=== PATIENT | female | born 1995 | race Caucasian/White ===

== ENCOUNTER 2019-06-23 18:37 | Emergency (ER) | payer OTHER ==
--- NOTE | 2019-06-23 19:16 | EKG REPORT ---
SEVERITY:- ABNORMAL ECG - SINUS RHYTHM BORDERLINE Q WAVES IN INFERIOR LEADS INFERIOR Q WAVES, PROBABLY NORMAL VARIATION BORDERLINE T ABNORMALITIES, ANTERIOR LEADS : Confirmed by: Sangeeta Jiang MD 23-Jun-2019 19:14:42
[2019-06-23] MEDS ORDERED: ASPIRIN 81 MG TABLET, CHEWABLE PO ONE (19:58)
--- NOTE | 2019-06-23 20:01 | ER Document Report ---
ED Medical Screen (RME) - General Chief Complaint: Chest Pain Stated Complaint: DIZZY, NAUSEA,CHEST PAIN Time Seen by Provider: 06/23/19 19:51 Notes: Patient is a 23-year-old female who presents to the emergency department with a chief complaint of chest pain. Around 1700 today she was drinking glass of water and felt a sharp pain in the left side of her chest. Patient has history of a pulmonary emboli before. She states that it feels similar to her pulmonary emboli, but she also had costochondritis before. Patient vapes. Exam: S1, S2. Sinus rhythm. Breath sounds throughout. I have greeted and performed a rapid initial assessment of this patient. A comprehensive ED assessment and evaluation of the patient, analysis of test results and completion of medical decision making process will be conducted by an additional ED providers. TRAVEL OUTSIDE OF THE [place] IN LAST 30 DAYS: No - Related Data Allergies/Adverse Reactions: No Known Allergies Allergy (Unverified 06/23/19 19:55) Past Medical History - Social History Frequency of alcohol use: None Physical Exam - Vital signs Vitals: Temp Pulse Resp BP Pulse Ox 98.4 F 78 18 108/69 100 06/23/19 18:52 06/23/19 18:52 06/23/19 18:52 06/23/19 18:52 06/23/19 18:52 Course - Vital Signs Vital signs: Temp Pulse Resp BP Pulse Ox 98.4 F 78 18 108/69 100 06/23/19 19:51 06/23/19 19:51 06/23/19 19:51 06/23/19 19:51 06/23/19 19:51
[2019-06-23 20:29] LABS: ABSOLUTE LYMPHOCYTES (AUTO) 2.6 10^3/uL (0.5-4.7); ABSOLUTE MONOCYTES (AUTO) 0.3 10^3/uL (0.1-1.4); ABSOLUTE NEUT (AUTO) 3.9 10^3/uL (1.7-8.2); BASOPHILS % (AUTO) 0.2 % (0-2); EOSINOPHILS % (AUTO) 0.4 % (0-6); HEMATOCRIT 37.2 % (36.0-47.0); HEMOGLOBIN 12.6 g/dL (12.0-15.5); MEAN CORPUSCULAR HEMOGLOBIN 28.2 pg (27.0-33.4); MEAN CORPUSCULAR HGB CONC 33.9 g/dL (32.0-36.0); MEAN CORPUSCULAR VOLUME 83 fl (80-97); MONOCYTES % (AUTO) 4.8 % (3-13); PLATELET COUNT 263 10^3/uL (150-450); RED BLOOD COUNT 4.47 10^6/uL (3.72-5.28); SEGMENTED NEUTROPHILS % (AUTO) 56.6 % (42-78); TOTAL CELLS COUNTED % (AUTO) 100 %; WHITE BLOOD COUNT 6.9 10^3/uL (4.0-10.5)
[2019-06-23 20:47] LABS: ALBUMIN 4.9 g/dL (3.5-5.0); ALKALINE PHOSPHATASE 84 U/L (38-126); ANION GAP 10 (5-19); ASPARTATE AMINO TRANSFERASE 20 U/L (14-36); BILIRUBIN,DIRECT 0.1 mg/dL (0.0-0.4); BILIRUBIN,TOTAL 0.5 mg/dL (0.2-1.3); BLOOD UREA NITROGEN 12 mg/dL (7-20); CARBON DIOXIDE 28 mmol/L (22-30); CHLORIDE 102 mmol/L (98-107); CREATINE KINASE 53 U/L (30-135); GLUCOSE 95 mg/dL (75-110); TOTAL PROTEIN 8.3 g/dL (6.3-8.2)
--- NOTE | 2019-06-23 20:55 | RADIOLOGY REPORT (SQ) ---
EXAM DESCRIPTION: XR CHEST 2 VIEWS COMPLETED DATE/TME: 06/23/2019 19:58 CLINICAL HISTORY: 23 years, Female, chest pain COMPARISON: None. CLINICAL HISTORY: 23 years Female, chest pain COMPARISON: None. FINDINGS: Cardiomediastinal silhouette is not enlarged. Mild prominence of vascular markings consistent with artifact from overlying dense breast tissue. No acute lung pleural bone abnormalities. IMPRESSION: No acute findings..
--- NOTE | 2019-06-24 00:24 | ER Document Report ---
ED General - General Chief Complaint: Chest Pain Stated Complaint: DIZZY, NAUSEA,CHEST PAIN Time Seen by Provider: 06/23/19 19:51 Mode of Arrival: Ambulatory TRAVEL OUTSIDE OF THE [place] IN LAST 30 DAYS: No - HPI Onset/Duration: Gradual Quality of pain: Sharp Severity: Moderate Pain Level: 3 Associated symptoms: Chest pain Similar symptoms previously: Yes - with prior PEs Recently seen / treated by doctor: No Notes: 23 year old female with a history of a protein S deficiency and prior PEs (she says she has had two in the past but never was on anticoagulation other then Aspirin) here for left sided chest pain for the last 1-2 days which she says feels like prior PEs. The patient denies fevers, chills, sweats, shortness of breath, productive cough, nausea, vomiting, sweating. - Related Data Allergies/Adverse Reactions: No Known Allergies Allergy (Unverified 06/23/19 19:55) Past Medical History - Social History Smoking Status: Former Smoker Frequency of alcohol use: None Drug Abuse: None, Other - patient Vapes Lives with: Family Family History: None Patient has suicidal ideation: No Patient has homicidal ideation: No - Past Medical History Cardiac Medical History: Reports: None Pulmonary Medical History: Reports: Other - Prior PE EENT Medical History: Reports: None Neurological Medical History: Reports: None Endocrine Medical History: Reports: None Renal/ Medical History: Reports: None Malignancy Medical History: Reports: None GI Medical History: Reports: None Musculoskeletal Medical History: Reports None Skin Medical History: Reports None Psychiatric Medical History: Reports: None Traumatic Medical History: Reports: None Infectious Medical History: Reports: None Past Surgical History: Reports: Other - Protein S Deficiency Review of Systems - Review of Systems Constitutional: No symptoms reported EENT: No symptoms reported Cardiovascular: No symptoms reported, Chest pain Respiratory: No symptoms reported Gastrointestinal: No symptoms reported Genitourinary: No symptoms reported Female Genitourinary: No symptoms reported Musculoskeletal: No symptoms reported Skin: No symptoms reported Hematologic/Lymphatic: No symptoms reported Neurological/Psychological: No symptoms reported Physical Exam - Vital signs Vitals: Temp Pulse Resp BP Pulse Ox 98.4 F 78 18 108/69 100 06/23/19 18:52 06/23/19 18:52 06/23/19 18:52 06/23/19 18:52 06/23/19 18:52 - Notes Notes: GENERAL: Well-appearing, well-nourished and in no acute distress. HEAD: Atraumatic, normocephalic. EYES: Pupils equal round and reactive to light, extraocular movements intact, sclera anicteric, conjunctiva are normal. ENT: Nares patent, oropharynx clear without exudates. Moist mucous membranes. NECK: Normal range of motion, supple without lymphadenopathy or JVD. LUNGS: Breath sounds clear to auscultation bilaterally and equal. No wheezes rales or rhonchi. HEART: Regular rate and rhythm without murmurs, rubs or gallops. ABDOMEN: Soft, nontender, normoactive bowel sounds. No guarding, no rebound. No masses appreciated. EXTREMITIES: Normal range of motion, no pitting or edema. No clubbing or cyanosis. NEUROLOGICAL: Cranial nerves II through XII grossly intact. Normal speech, normal gait. PSYCH: Normal mood, normal affect. SKIN: Warm, Dry, normal turgor, no rashes or lesions noted. Course - Re-evaluation Re-evalutation: 06/24/19 03:33 The patient says she has protein S deficiency and that she has had 2 previous PEs. CTA of chest done today since she had a positive D-Dimer and the CTA was negative. The patient is safe for outpatient follow up with a PCP. Will refer to a PCP and Hematology. - Vital Signs Vital signs: Temp Pulse Resp BP Pulse Ox 98.4 F 78 19 99/71 L 98 06/23/19 19:51 06/23/19 19:51 06/24/19 02:30 06/24/19 01:10 06/24/19 02:30 - Laboratory Result Diagrams: 06/23/19 20:05 06/23/19 20:05 Laboratory results interpreted by me: 06/23/19 06/23/19 20:05 20:05 D-Dimer 0.56 H Total Protein 8.3 H - EKG Interpretation by [facility] EKG shows normal: Sinus rhythm, [place] - normal Rate: Normal Rhythm: NSR Additional EKG results interpreted by me: 06/24/19 00:32 q waves in inferior leads Discharge - Discharge Clinical Impression: Chest pain Qualifiers: Chest pain type: unspecified Qualified Code(s): R07.9 - Chest pain, unspecified Disposition: HOME, SELF-CARE Instructions: Chest Pain of Unclear Cause ([facility]) Additional Instructions: Follow up with a primary care doctor (Dr. Green) and with a Help Desk Supervisor (Dr. Mayers). You had a CTA of your chest today which showed no PE.
--- NOTE | 2019-06-24 03:21 | RADIOLOGY REPORT (SQ) ---
EXAM DESCRIPTION: CT CHEST ANGIOGRAPHY WITH IV CONTRAST COMPLETED DATE/TME: 06/24/2019 01:13 CLINICAL HISTORY: 23 years Female, EVAL PE. PT C/O CHEST PAIN, SOB. DDIMER 0.56. PRIOR HX OF PE X2 Comparison: CR, same day. Technique: IV contrast. Coronal and sagittal reformat. 3d reconstruction. This exam was performed according to our departmental dose-optimization program, which includes automated exposure control, adjustment of the mA and/or kV according to patient size and/or use of iterative reconstruction technique.[facility]: Dose Right [facility]: CareDose [facility]: Dose Right [facility]: Teradose 4D [facility]: [employer] LIMITATIONS: None Findings: No pulmonary embolus. No right ventricular strain. Clear lungs. Inferior neck, axillae, mediastinum, airway, lymphatics, heart, vasculature, upper abdomen, and musculoskeleton appear otherwise unremarkable. Impression: No pulmonary embolus. No acute cardiopulmonary findings.
[2019-06-24 03:52] VITALS: BP 91/60
[2019-06-24] MEDS ORDERED: KETOROLAC TROMETHAMINE 10 MG TABLET PO ONE (04:18)
[2019-06-24] MEDS ORDERED: ONDANSETRON 4 MG TAB.RAPDIS PO ONE (04:18)
== END 2019-06-24 04:32 | disposition home or self-care (01) ==
LOC: ER 18:37
DX: R07.9 Chest pain, unspecified (principal); R79.89 Other specified abnormal findings of blood chemistry; Z86.711 Personal history of pulmonary embolism; Z79.82 Long term (current) use of aspirin; Z87.891 Personal history of nicotine dependence
CPT/HCPCS: 93005; 99285; 36415; 82550; 85025; 80053; 84484; 85379; 71046; 71275; 93010; S0119; J3490

== ENCOUNTER 2019-07-27 01:42 | Emergency (ER) | payer OTHER ==
--- NOTE | 2019-07-27 02:57 | RADIOLOGY REPORT (SQ) ---
EXAM DESCRIPTION: [facility]: CT CERVICAL SPINE WITHOUT IV CONTRAST CLINICAL HISTORY: 23 years Female; neck injury, left arm numbness TECHNIQUE: Noncontrast cervical spine CT with sagittal and coronal reconstructions. All CT scans at this facility use dose modulation, iterative reconstruction, and/or weight based dosing when appropriate to reduce radiation dose to as low as reasonably achievable. COMPARISON: None FINDINGS: Alignment is anatomic. There is no acute fracture of the cervical spine. No epidural hematoma. IMPRESSION: 1. No acute cervical spine fracture or subluxation.
[2019-07-27] MEDS ORDERED: KETOROLAC TROMETHAMINE 60 MG/2 ML SDV IM ONE (04:44)
[2019-07-27] MEDS ORDERED: METHOCARBAMOL 750 MG TABLET PO ONE (04:44)
[2019-07-27] MEDS ORDERED: TRAMADOL HCL 50 MG TABLET PO ONE (04:46)
--- NOTE | 2019-07-27 04:46 | ER Document Report ---
ED General - General Chief Complaint: Neck Injury Stated Complaint: BED FALL Time Seen by Provider: 07/27/19 04:37 Mode of Arrival: Ambulatory Information source: Patient TRAVEL OUTSIDE OF THE [place] IN LAST 30 DAYS: No - HPI Onset: Other - Last Night Onset/Duration: Sudden Quality of pain: Achy, Other - stiffness of neck Severity: Moderate Pain Level: 3 Associated symptoms: None Exacerbated by: Movement - of her neck and left shoulder/arm Relieved by: Remaining still Similar symptoms previously: No Recently seen / treated by doctor: No Notes: 23 year old female with no significant PMH here for pain and stiffness in the left side of her neck, left shoulder, and left scapula region which started aft er she fell off a Russ Size bed and landed on her left side. The patient says she tried motrin and ice without much relief. The patient says the stiffness in her neck and shoulder seems to be getting worse. The patient denies midline neck tenderness or bony tenderness in her left shoulder/scapula region. - Related Data Allergies/Adverse Reactions: No Known Allergies Allergy (Unverified 06/23/19 19:55) Past Medical History - General Information source: Patient - Social History Smoking Status: Never Smoker Frequency of alcohol use: None Drug Abuse: None Family History: None Patient has suicidal ideation: No Patient has homicidal ideation: No Past Surgical History: Reports: Other - Protein S Deficiency Review of Systems - Review of Systems Constitutional: No symptoms reported EENT: No symptoms reported Cardiovascular: No symptoms reported Respiratory: No symptoms reported Gastrointestinal: No symptoms reported Genitourinary: No symptoms reported Female Genitourinary: No symptoms reported Musculoskeletal: Neck pain - with neck stiffness and muscle spasms, Other - left shoulder/scapular pain which patient says is in the muscles around this area Skin: No symptoms reported Hematologic/Lymphatic: No symptoms reported Neurological/Psychological: No symptoms reported Physical Exam - Vital signs Vitals: Temp Pulse Resp BP Pulse Ox 98.0 F 83 18 124/79 100 07/27/19 01:53 07/27/19 01:53 07/27/19 01:53 07/27/19 01:53 07/27/19 01:53 - Notes Notes: GENERAL: Well-appearing, well-nourished, mild distress due to neck pain. Nursing placed patient in a C-Collar. HEAD: Atraumatic, normocephalic. EYES: Pupils equal round and reactive to light, extraocular movements intact, sclera anicteric, conjunctiva are normal. ENT: TMs normal, nares patent, oropharynx clear without exudates. Moist mucous membranes. NECK: No midline C Spine Tenderness. Patient is able to move neck in all directions slowly but it pains her to do so and her neck is very stiff. LUNGS: Breath sounds clear to auscultation bilaterally and equal. No wheezes rales or rhonchi. HEART: Regular rate and rhythm without murmurs, rubs or gallops. ABDOMEN: Soft, nontender, normoactive bowel sounds. No guarding, no rebound. No masses appreciated. BACK: no midline tenderness. EXTREMITIES: Normal range of motion, no pitting or edema. No clubbing or cyanosis. Mild tenderness in muscle around scapular and left shoulder but no bony tenderness on palpation. Patient cam move her left arm in all directions but she has some minor pain when moving it in any direction. NEUROLOGICAL: Cranial nerves II through XII grossly intact. Normal speech, normal gait. PSYCH: Normal mood, normal affect. SKIN: Warm, Dry, normal turgor, no rashes or lesions noted. Course - Re-evaluation Re-evalutation: 07/27/19 05:01 The patient fell out of bed and landed on her left shoulder and scapula. She had a CT C Spine Ordered in triage which showed no acute process. Patient likely has a shoulder contusion and sprain and cervical strain from her fall from bed. The patient was treated with IM Tordol and PO Robaxin in the ER. Will DC patient on Naproxen and Robaxin - Vital Signs Vital signs: Temp Pulse Resp BP Pulse Ox 98.0 F 83 18 124/79 100 07/27/19 01:53 07/27/19 01:53 07/27/19 01:53 07/27/19 01:53 07/27/19 01:53 - Diagnostic Test Radiology reviewed: Reports reviewed Discharge - Discharge Clinical Impression: Contusion of shoulder Qualifiers: Encounter type: initial encounter Laterality: left Qualified Code(s): S40.012A - Contusion of left shoulder, initial encounter Cervical strain, acute Qualifiers: Encounter type: initial encounter Qualified Code(s): S16.1XXA - Strain of muscle, fascia and tendon at neck level, initial encounter Condition: Stable Disposition: HOME, SELF-CARE Instructions: Neck Injury (Cervical Strain) ([facility]), Shoulder Injury ([facility]) Additional Instructions: Use the prescribed Naproxen for pain along with over the counter Tylenol. Use the prescribed Robaxin for muscle spasms/stiffness. Follow up with your primary care doctor or an Orthopedic Surgeon if your symptoms persist. Prescriptions: Methocarbamol [Robaxin 750 mg Tablet] 750 mg PO Q8HP PRN #10 tablet PRN Reason: Naproxen 500 mg PO BIDP PRN #14 tablet PRN Reason:
[2019-07-27 06:37] VITALS: BP 122/77
== END 2019-07-27 05:30 | disposition home or self-care (01) ==
LOC: ER 01:42
DX: S40.012A Contusion of left shoulder, initial encounter (principal); S16.1XXA Strain of muscle, fascia and tendon at neck level, initial encounter; M25.512 Pain in left shoulder; M79.602 Pain in left arm; M54.2 Cervicalgia; W06.XXXA Fall from bed, initial encounter
CPT/HCPCS: 99284; 96372; 72125; J1885; J3490

== ENCOUNTER 2020-02-05 14:43 | Emergency (ER) | payer OTHER ==
[2020-02-05] MEDS ORDERED: ACETAMINOPHEN 325 MG TABLET PO ONE (15:00)
--- NOTE | 2020-02-05 15:03 | ER Document Report ---
ED Medical Screen (RME) - General Chief Complaint: Pelvic Pain Stated Complaint: PELVIC PAIN Time Seen by Provider: 02/05/20 14:56 Mode of Arrival: Ambulatory Information source: Patient Notes: HPI; 24-year-old female with no previous medical problems presents to the emergency room complaining of sudden onset of right lower pelvic pain that started about an hour and a half ago. Describes it as a sharp stabbing pain to her right ovary that radiates to her right lower back. She denies any nausea, vomiting, no urinary symptoms. No fevers. No medications for symptoms. PE: Alert and oriented x3. Moderate distress noted. Lungs: Clear to auscultation without rales, rhonchi, wheezes. Heart: Tachycardic without murmurs, rubs, gallops. No CVA tenderness noted bilaterally. Unable to do abdominal exam in triage. I have greeted and performed a rapid initial assessment of this patient. A comprehensive ED assessment and evaluation of the patient, analysis of test results and completion of the medical decision making process will be conducted by additional ED providers. I have specifically instructed the patient or family members with the patient to immediately return to any nursing staff should anything change in the patient's condition or with their chief complaint. TRAVEL OUTSIDE OF THE [place] IN LAST 30 DAYS: No - Related Data Allergies/Adverse Reactions: No Known Allergies Allergy (Unverified 06/23/19 19:55) Past Medical History - Social History Frequency of alcohol use: None Drug Abuse: None Past Surgical History: Reports: Other - Protein S Deficiency Physical Exam - Vital signs Vitals: Temp Pulse Resp BP Pulse Ox 98.3 F 107 H 20 126/83 H 100 02/05/20 14:47 02/05/20 14:47 02/05/20 14:47 02/05/20 14:47 02/05/20 14:47 Course - Vital Signs Vital signs: Temp Pulse Resp BP Pulse Ox 98.3 F 107 H 20 126/83 H 100 02/05/20 14:47 02/05/20 14:47 02/05/20 14:47 02/05/20 14:47 02/05/20 14:47
[2020-02-05 15:17] LABS: APPEARANCE,URINE CLEAR; BILIRUBIN,URINE NEGATIVE (NEGATIVE); COLOR,URINE STRAW; GLUCOSE, URINE NEGATIVE (NEGATIVE); KETONES,URINE NEGATIVE (NEGATIVE); LEUKOCYTE ESTERASE,URINE NEGATIVE (NEGATIVE); NITRITE,URINE NEGATIVE (NEGATIVE); PROTEIN,URINE NEGATIVE (NEGATIVE); URINE SPECIFIC GRAVITY 1.005; UROBILINOGEN,URINE NEGATIVE mg/dL (<2.0)
[2020-02-05] MEDS ORDERED: ONDANSETRON HCL INJ/PF 4 MG/2 ML SDV IV ONE (15:20)
[2020-02-05] MEDS ORDERED: NORMAL SALINE 1000 ML 1,000 ML IV ONE (15:20)
[2020-02-05] MEDS ORDERED: KETOROLAC TROMETHAMINE INJ/PF 30 MG/1 ML SDV IV ONE (15:20)
--- NOTE | 2020-02-05 15:23 | ER Document Report ---
ED General - General Chief Complaint: Pelvic Pain Stated Complaint: PELVIC PAIN Time Seen by Provider: 02/05/20 14:56 Mode of Arrival: Ambulatory TRAVEL OUTSIDE OF THE [place] IN LAST 30 DAYS: No - HPI Patient complains to provider of: abd pain Notes: 24 y/o presenting to the ED for evaluation of 1.5 hrs of RLQ abdominal pain that she describes as her ovary she denies fever or chills but has had nausea w/ emesis she states she feels like she is having contractions although denies a chance of at initial evaluation she denies urinary pain, hematuria, or odor she denies vaginal discharge she has a h/o ovarian cysts but denies ever having pain like this she states she was riding in a car when the pain started abruptly. up to the time of onset, she felt normally with no abd pain or stomach unrest she denies changes to BM's she does have a family history of endometriosis and a personal history of folic acid deficiency and a protein C or S deficiency per her report. - Related Data Allergies/Adverse Reactions: No Known Allergies Allergy (Unverified 06/23/19 19:55) Past Medical History - General Information source: Patient Last Menstrual Period: 01/11/2020 - Social History Smoking Status: Never Smoker Frequency of alcohol use: None Drug Abuse: None Family History: None Past Surgical History: Reports: Hx Appendectomy, Other - Protein S Deficiency Review of Systems - Review of Systems Constitutional: No symptoms reported EENT: No symptoms reported Cardiovascular: No symptoms reported Respiratory: No symptoms reported Gastrointestinal: Abdominal pain, Nausea, Vomiting Genitourinary: No symptoms reported Female Genitourinary: No symptoms reported Musculoskeletal: No symptoms reported Skin: No symptoms reported Hematologic/Lymphatic: No symptoms reported Neurological/Psychological: No symptoms reported Physical Exam - Vital signs Vitals: Temp Pulse Resp BP Pulse Ox 98.3 F 107 H 20 126/83 H 100 02/05/20 14:47 02/05/20 14:47 02/05/20 14:47 02/05/20 14:47 02/05/20 14:47 Interpretation: Normal - General General appearance: Appears well, Alert - HEENT Head: Normocephalic, Atraumatic Eyes: Normal Pupils: PERRL - Respiratory Respiratory status: No respiratory distress Chest status: Nontender Breath sounds: Normal Chest palpation: Normal - Cardiovascular Rhythm: Regular Heart sounds: Normal auscultation Murmur: No - Abdominal Inspection: Normal Distension: No distension Bowel sounds: Normal Tenderness: Tender - RLQ tender to palpation, and right flank as well. no guarding or rebound Organomegaly: No organomegaly - Back Back: Normal, Nontender - Extremities General upper extremity: Normal inspection, Nontender, Normal color, Normal ROM, Normal temperature General lower extremity: Normal inspection, Nontender, Normal color, Normal ROM, Normal temperature, Normal weight bearing. No: Barbie's sign - Neurological Neuro grossly intact: Yes Cognition: Normal Orientation: AAOx4 [place] Coma Scale Eye Opening: Spontaneous Derrick Coma Scale Verbal: Oriented [place] Coma Scale Motor: Obeys Commands [place] Coma Scale Total: 15 Speech: Normal Motor strength normal: LUE, RUE, LLE, RLE Sensory: Normal - Psychological Associated symptoms: Normal affect, Normal mood - Skin Skin Temperature: Warm Skin Moisture: Dry Skin Color: Normal Course - Re-evaluation Re-evalutation: 02/05/20 15:23 patient w/ abrupt onset of RLQ abdominal pain w/ nausea concern for ovarian torsion so will obtain pelvic sonogram toradol and zofran as well as ivf bolus for symptoms 02/05/20 16:36 notified patient that she is and that US was inconclusive for location of await quant hcg for further interpretation of US 02/05/20 17:05 patient's quant is below discriminatory zone - will recommend either 48/72 hr follow up with ED or OBGYN return precautions reviewed at time of dc no pain now no bleeding to suggest abo/rh needed at this time - Vital Signs Vital signs: Temp Pulse Resp BP Pulse Ox 98.3 F 107 H 20 126/83 H 100 02/05/20 14:47 02/05/20 14:47 02/05/20 14:47 02/05/20 14:47 02/05/20 14:47 - Laboratory Result Diagrams: 02/05/20 15:19 02/05/20 15:19 Laboratory results interpreted by me: 02/05/20 02/05/20 02/05/20 15:19 15:19 15:19 Hgb 11.2 L Hct 33.7 L MCV 75 L MCH 25.0 L RDW 16.2 H Total Protein 8.3 H Serum HCG, Qual POSITIVE H Beta HCG, Quant 02/05/20 15:19 Hgb Hct MCV MCH RDW Total Protein Serum HCG, Qual Beta HCG, Quant 11.84 H - Diagnostic Test Radiology reviewed: Image reviewed, Reports reviewed Discharge - Discharge Clinical Impression: Abdominal pain affecting Condition: Good Disposition: HOME, SELF-CARE Instructions: Abdominal Pain ([facility]), Pelvic Pain in and Round Ligament Pain ([facility]) Additional Instructions: It is important for you to follow up with OBGYN as an outpatient in 48-72 hours or return to the ED in this timeframe for repeat check as ectopic has not been excluded at this time Return to the ED with worsening symptoms or concerns Only take tylenol at home for your pain and consider a vitamin daily Referrals: EULOGIO FLOWERS MD [ACTIVE STAFF] - Follow up as needed
[2020-02-05 15:36] LABS: ABSOLUTE EOSINOPHILS # (AUTO) 0.1 10^3/uL (0.0-0.6); ABSOLUTE MONOCYTES (AUTO) 0.4 10^3/uL (0.1-1.4); RED CELL DISTRIBUTION WIDTH 16.2 % (11.5-14.0); SEGMENTED NEUTROPHILS % (AUTO) 58.7 % (42-78); TOTAL CELLS COUNTED % (AUTO) 100 %
[2020-02-05 15:45] LABS: ABSOLUTE LYMPHOCYTES (AUTO) 2.2 10^3/uL (0.5-4.7); ABSOLUTE NEUT (AUTO) 3.8 10^3/uL (1.7-8.2); BASOPHILS % (AUTO) 0.4 % (0-2); EOSINOPHILS % (AUTO) 0.9 % (0-6); HEMATOCRIT 33.7 % (36.0-47.0); HEMOGLOBIN 11.2 g/dL (12.0-15.5); LYMPHOCYTES % (AUTO) 33.7 % (13-45); MEAN CORPUSCULAR HGB CONC 33.3 g/dL (32.0-36.0); MEAN CORPUSCULAR VOLUME 75 fl (80-97); MONOCYTES % (AUTO) 6.3 % (3-13); PLATELET COUNT 260 10^3/uL (150-450); RED BLOOD COUNT 4.49 10^6/uL (3.72-5.28); WHITE BLOOD COUNT 6.5 10^3/uL (4.0-10.5)
[2020-02-05 15:50] LABS: ALBUMIN 4.9 g/dL (3.5-5.0); ALKALINE PHOSPHATASE 86 U/L (38-126); ANION GAP 8 (5-19); ASPARTATE AMINO TRANSFERASE 21 U/L (14-36); BILIRUBIN,TOTAL 0.3 mg/dL (0.2-1.3); BLOOD UREA NITROGEN 11 mg/dL (7-20); CALCIUM 9.8 mg/dL (8.4-10.2); CARBON DIOXIDE 26 mmol/L (22-30); CHLORIDE 105 mmol/L (98-107); GLUCOSE 93 mg/dL (75-110); POTASSIUM 3.7 mmol/L (3.6-5.0); TOTAL PROTEIN 8.3 g/dL (6.3-8.2)
--- NOTE | 2020-02-05 16:27 | RADIOLOGY REPORT (SQ) ---
EXAM DESCRIPTION: U/S NON OB PEL TV W/DOPPLER IMAGES COMPLETED DATE/TIME: 02/05/2020 4:13 pm REASON FOR STUDY: right pelvic pain LMP 01/11/2020. COMPARISON: None. TECHNIQUE: Dynamic and static grayscale images acquired of the pelvis via transvaginal approach and recorded on PACS. Additional selected color Doppler and spectral images recorded. LIMITATIONS: None. FINDINGS: UTERUS: The uterus measures 6.3 x 4.4 x 5.8 cm. No focal myometrial mass was seen. ENDOMETRIAL STRIPE: The endometrium measures 1.6 cm in double wall thickness. CERVIX: The cervix measures 2.6 cm in length. RIGHT OVARY AND DOPPLER: The right ovary measures 3.8 x 2.4 x 2.2 cm. Flow by Doppler was shown to t he right ovary. Small follicles are noted. LEFT OVARY AND DOPPLER: The left ovary measures 3.5 x 2.9 x 2.7 cm. Flow by Doppler was shown to the left ovary. There is a 1.8 x 2.2 x 1.8 cm hypoechoic cyst, may represent a hemorrhagic cyst. FREE FLUID: Trace free pelvic fluid. IMPRESSION: 1. Endometrial thickening, may be secondary to the phase of the menstrual cycle. 2. 2.2 cm probable hemorrhagic cyst at the left ovary. 3. Trace free pelvic fluid. TECHNICAL DOCUMENTATION: JOB ID: [id number] 2010 [employer]- All Rights Reserved Rev-12/04 Reading location - IP/workstation name: [email or web address]
[2020-02-05 17:16] VITALS: BP 100/61
== END 2020-02-05 17:21 | disposition home or self-care (01) ==
LOC: ER 14:43
DX: O26.891 Other specified pregnancy related conditions, first trimester (principal); R10.31 Right lower quadrant pain; R10.813 Right lower quadrant abdominal tenderness; R10.819 Abdominal tenderness, unspecified site; O21.9 Vomiting of pregnancy, unspecified; Z3A.01 Less than 8 weeks gestation of pregnancy; Z90.49 Acquired absence of other specified parts of digestive tract
CPT/HCPCS: 99284; 96361; 96374; 96375; 36415; 84702; 83690; 84703; 85025; 80053; 81001; 76830; 93976; J1885; J2405; J7030

== ENCOUNTER 2020-03-08 16:30 | Emergency (ER) | payer OTHER ==
[2020-03-08 16:34] VITALS: BP 109/71
[2020-03-08] MEDS ORDERED: METOCLOPRAMIDE HCL INJ/PF 10 MG/2 ML SDV IV ONE (17:32)
[2020-03-08] MEDS ORDERED: RINGERS SOLUTION,LACTATED 1,000 ML IV ONE (17:32)
--- NOTE | 2020-03-08 17:37 | ER Document Report ---
ED Medical Screen (RME) - General Chief Complaint: Abdominal Cramping Stated Complaint: ABDOMINAL CRAMPING Time Seen by Provider: 03/08/20 17:25 Mode of Arrival: Ambulatory Information source: Patient Notes: HPI; 24-year-old female who states she is approximately 8 weeks presents emergency room complaining of abdominal cramping that started earlier today. Also complaining of nausea with vomiting. States she is not been able to eat anything since 10:00 last night. 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 States she had an ultrasound 2 weeks ago at the doctor's office which did show a heartbeat and a subchorionic bleed. She currently denies any vaginal bleeding. No vaginal discharge. PE: Alert and oriented x3. Mild distress noted. Lungs: Clear to auscultation without rales, rhonchi, wheezes. Heart: Regular rate rhythm without murmurs, rubs, gallops. I have greeted and performed a rapid initial assessment of this patient. A comprehensive ED assessment and evaluation of the patient, analysis of test results and completion of the medical decision making process will be conducted by additional ED providers. I have specifically instructed the patient or family members with the patient to immediately return to any nursing staff should anything change in the patient's condition or with their chief complaint. TRAVEL OUTSIDE OF THE [place] IN LAST 30 DAYS: No - Related Data Allergies/Adverse Reactions: No Known Allergies Allergy (Unverified 06/23/19 19:55) Past Medical History Past Surgical History: Reports: Hx Appendectomy, Other - Protein S Deficiency Physical Exam - Vital signs Vitals: Temp Pulse Resp BP Pulse Ox 97.8 F 103 H 16 109/71 100 03/08/20 16:33 03/08/20 16:33 03/08/20 16:33 03/08/20 16:33 03/08/20 16:33 Course - Vital Signs Vital signs: Temp Pulse Resp BP Pulse Ox 97.8 F 103 H 16 109/71 100 03/08/20 16:33 03/08/20 16:33 03/08/20 16:33 03/08/20 16:33 03/08/20 16:33
[2020-03-08 18:24] LABS: ABSOLUTE EOSINOPHILS # (AUTO) 0.1 10^3/uL (0.0-0.6); ABSOLUTE LYMPHOCYTES (AUTO) 2.7 10^3/uL (0.5-4.7); ABSOLUTE MONOCYTES (AUTO) 0.5 10^3/uL (0.1-1.4); ABSOLUTE NEUT (AUTO) 5.1 10^3/uL (1.7-8.2); BASOPHILS % (AUTO) 0.5 % (0-2); EOSINOPHILS % (AUTO) 0.7 % (0-6); HEMATOCRIT 36.8 % (36.0-47.0); HEMOGLOBIN 12.1 g/dL (12.0-15.5); LYMPHOCYTES % (AUTO) 32.2 % (13-45); MEAN CORPUSCULAR HEMOGLOBIN 25.6 pg (27.0-33.4); MEAN CORPUSCULAR HGB CONC 32.9 g/dL (32.0-36.0); MEAN CORPUSCULAR VOLUME 78 fl (80-97); PLATELET COUNT 309 10^3/uL (150-450); RED BLOOD COUNT 4.73 10^6/uL (3.72-5.28); RED CELL DISTRIBUTION WIDTH 19.7 % (11.5-14.0); SEGMENTED NEUTROPHILS % (AUTO) 60.6 % (42-78); TOTAL CELLS COUNTED % (AUTO) 100 %; WHITE BLOOD COUNT 8.4 10^3/uL (4.0-10.5)
[2020-03-08 18:29] LABS: APPEARANCE,URINE CLEAR; BILIRUBIN,URINE NEGATIVE (NEGATIVE); COLOR,URINE YELLOW; GLUCOSE, URINE NEGATIVE (NEGATIVE); KETONES,URINE NEGATIVE (NEGATIVE); LEUKOCYTE ESTERASE,URINE TRACE (NEGATIVE); NITRITE,URINE NEGATIVE (NEGATIVE); PROTEIN,URINE NEGATIVE (NEGATIVE); URINE SPECIFIC GRAVITY 1.031; UROBILINOGEN,URINE NEGATIVE mg/dL (<2.0)
[2020-03-08 18:42] LABS: ALBUMIN 4.7 g/dL (3.5-5.0); ALKALINE PHOSPHATASE 75 U/L (38-126); ANION GAP 11 (5-19); ASPARTATE AMINO TRANSFERASE 18 U/L (14-36); BILIRUBIN,TOTAL 0.3 mg/dL (0.2-1.3); BLOOD UREA NITROGEN 12 mg/dL (7-20); CALCIUM 9.7 mg/dL (8.4-10.2); CARBON DIOXIDE 25 mmol/L (22-30); CHLORIDE 102 mmol/L (98-107); GLUCOSE 85 mg/dL (75-110); POTASSIUM 3.9 mmol/L (3.6-5.0); TOTAL PROTEIN 8.4 g/dL (6.3-8.2)
--- NOTE | 2020-03-08 19:10 | RADIOLOGY REPORT (SQ) ---
EXAM DESCRIPTION: U/S OB TRANSVAG W/DOPPLER IMAGES COMPLETED DATE/TIME: 03/08/2020 6:59 pm REASON FOR STUDY: pelvic cramping COMPARISON: None. TECHNIQUE: Transvaginal static and realtime grayscale images acquired of the pelvis. Additional jarrett cted spectral and color Doppler images recorded. All images stored on PACs. bHCG: Not available. CLINICAL DATES: 8 weeks 2 days LIMITATIONS: None. FINDINGS: FETUS: Single Living intrauterine . ULTRASOUND EGA: 8 weeks 0 days ULTRASOUND LU: 10/18/2020 EFW: Not applicable less than 20 weeks. CRL: 1.6 cm FHR: 158 beats per minute. SURVEY: No visualized anomalies. AMNIOTIC FLUID: Adequate amount. PLACENTA: Not yet developed due to early gestation. SUBCHORIONIC BLEED: Yes. SIZE OF BLEED: 2.5 x 2.8 x 0.7 cm. UTERUS: No masses. No anomalies. CERVICAL LENGTH: 3.0 cm. Closed. RIGHT ADNEXA: Normal ovary with normal vascular flow. No adnexal free fluid. No adnexal masses. LEFT ADNEXA: Normal ovary with normal vascular flow. No adnexal free fluid. No adnexal masses. FREE FLUID: None. OTHER: No other significant finding. IMPRESSION: LIVING INTRAUTERINE . EGA 8 weeks 0 days. Small subchronic hemorrhage. Trimester of : First trimester - 0 to 13 weeks. TECHNICAL DOCUMENTATION: JOB ID: [id number] 2010 [employer]- All Rights Reserved rev-12/04 Reading location - IP/workstation name: [email or web address]
== END 2020-03-08 21:04 | disposition left against medical advice (07) ==
LOC: ER 16:30
DX: Z53.20 Procedure and treatment not carried out because of patient's decision for unspecified reasons (principal); O26.891 Other specified pregnancy related conditions, first trimester; R10.9 Unspecified abdominal pain; O21.9 Vomiting of pregnancy, unspecified; Z3A.08 8 weeks gestation of pregnancy
CPT/HCPCS: 36415; 76817; 80053; 81001; 84702; 85025; 93976; 99281